=== PATIENT | female | born 1960 | race Caucasian/White ===

== ENCOUNTER 2020-12-21 11:16 | Outpatient (CLI) | payer OTHER, SELFPAY ==
--- NOTE | ~2020-12-21 | XR_ITS ---
EXAMINATION: XR shoulder LT min 2V DATE: 12/21/2020 13:18 INDICATION: Left shoulder pain TECHNIQUE: AP internally and externally rotated, AP oblique externally rotated and transscapular Y vi ews of the left shoulder were obtained. COMPARISON: None FINDINGS: Normal alignment. No fracture.Mild glenohumeral osteoarthritis with small marginal osteophytes along the inferior glenoid. Acromioclavicular osteoarthritis with small amount of heterotopic ulceration a long the cephalad joint capsule. Small lateral subacromial spur. Small bone island at the humeral hea d. Soft tissues are and visualized portions of the lungs unremarkable. IMPRESSION: Mild left glenohumeral and acromioclavicular osteoarthritis. Reviewed, dictated and finalized at location A.
--- NOTE | ~2020-12-21 | XR_ITS ---
XR shoulder RT min 2V DATE: 12/21/2020 12:01 INDICATION: Bilateral shoulder pain TECHNIQUE: 4 views COMPARISON: None FINDINGS: There is diffuse osteopenia. There is multilevel degenerative disc disease of the cervical spine, especially at C5-6 and C6-7. The re is degenerative spurring of the thoracic spine. There is mild degenerative spurring at the right acromioclavicular joint. No fracture, dislocation, periosteal reaction or bone destruction of the right shoulder. IMPRESSION: Mild degenerative spurring at the acromioclavicular joint Osteopenia Reviewed, dictated and finalized at location A.
--- NOTE | ~2020-12-21 | XR_ITS ---
XR cervical spine 4-5V DATE: 12/21/2020 11:58 INDICATION: Chronic neck pain TECHNIQUE: AP, open-mouth, lateral, swimmer views COMPARISON: None FINDINGS: There is straightening of the cervical spine which may be due to muscle spasm. C1 and C2 are normally aligned and the odontoid process is intact. No fracture or dislocation, locked facet or prevertebral soft tissue swelling is detected. There is minimal anterolisthesis at C4-5. There is moderate loss of interspace height at C5-6 and to a greater extent C6-7. There is uncovertebral joint spurring in the mid and lower cervical spine, most prominent at C6-7. IMPRESSION: Straightening Minimal anterolisthesis at C4-5 Mild degenerative disc disease at C5-6, moderate at C6-7 Degenerative change at the uncovertebral joints, particularly at C6-7 Reviewed, dictated and finalized at location A.
== END 2020-12-21 11:17 | disposition home or self-care (01) ==
PROVIDERS: PCP Physician Assistant; Visit Provider Physician Assistant
DX: M19.012 Primary osteoarthritis, left shoulder (principal); M50.323 Other cervical disc degeneration at C6-C7 level; M50.322 Other cervical disc degeneration at C5-C6 level; M19.011 Primary osteoarthritis, right shoulder; M85.811 Other specified disorders of bone density and structure, right shoulder
CPT/HCPCS: 72050; 73030

== ENCOUNTER 2021-10-25 13:32 | Outpatient (CLI) | payer OTHER, SELFPAY ==
--- NOTE | 2021-10-25 | ECHO_ITS ---
Patient Info Name: Angy Aiken Age: 61 years : 1960 Gender: Female Ht: 63 in Wt: 136 lbs BSA: 1.67 m2 HR: 103 bpm BP: 111 / 76 mmHg Heart Rhythm: Sinus Rhythm Exam Date: 10/25/2021 2:11 PM Exam Location: [facility] Pulmonary Patient Status: Outpatient Admit Date: 10/25/2021 Staff Ordering Physician: Joe, Kelley Higuera PA-C Mobile Lab Technician: Shree Blas RDCS, RT Attending Provider: Joe, Kelley Higuera PA-C Referring Physician: Joe QUIROZ; Exam Type: CA echo doppler color flow Study Info Indications I10 - Essential (primary) hypertension Complete two-dimensional, color flow and Doppler transthoracic echocardiogram is performed. Strain analysis performed. Summary 1. Complete two-dimensional, color flow and Doppler transthoracic echocardiogram is performed. 2. Normal left ventricular size and thickness with good contractility of all segments. Ejection fraction visually is 55-60%. Grade 1 diastolic dysfunction is present. 3. Global longitudinal strain is moderately abnormal at -13% consistent with a degree of systolic dysfunction. 4. No significant valve disease. 5. Normal sinus rhythm. 6. Technically difficult study. Left Ventricle Left ventricular chamber dimension is normal. Left ventricular systolic function is normal, estimated at 55-60%. There is no increased left ventricular wall thickness. Left ventricular septal wall motion is normal. The left ventricular diastolic function is grade I diastolic dysfunction. Right Ventricle Right ventricular chamber dimension is normal. Right ventricular systolic function is normal. Left Atria Left atrial chamber dimension is normal. Right Atria Right atrial chamber dimension is normal. Aortic Valve The aortic valve is trileaflet. There is no aortic valve sclerosis. There is no aortic valve stenosis. There is no aortic valve regurgitation. Pulmonic Valve The pulmonic valve is normal. There is no pulmonic valve stenosis. There is no pulmonic regurgitation. Mitral Valve The mitral valve has normal leaflets. There is no mitral valve stenosis. There is trace mitral valve regurgitation. Tricuspid Valve The tricuspid valve leaflets are normal. There is no significant tricuspid valve stenosis. There is trace tricuspid valve regurgitation. No pulmonary hypertension, estimated pulmonary arterial systolic pressure is Empty. Pericardium/Pleural The pericardium appears normal. There is no pericardial effusion. Inferior Vena Cava Normal inferior vena cava with >50% collapse upon inspiration consistent with Empty right atrial pressure, Empty. Aorta The aortic root size at the sinus of Valsalva is normal. The prox ascending aorta size is normal. Left Ventricular Outflow Tract Name Value Normal LVOT Doppler LVOT Peak Gradient 2 mmHg LVOT Mean Gradient 1 mmHg LVOT VTI 13 cm LVOT VTI/AV VTI Ratio 0.7 Mitral Valve Name Value Normal
--- NOTE | 2021-10-31 12:40 | WPDHOLTEREM ---
Holter/Event Monitor Holter/Event Monitor Date of procedure: 10/31/21 Holter/Event Procedure: 48 Hr Holter Monitor Indications: Syncope Conclusion: 1. 48 hour holter monitor on 10/25/21. 2. Underlying rhythm is sinus rhythm. HR range 55-154 bpm; average HR 84 bpm. 3. There are 6 premature supraventricular complexes and 1 supraventricular triplet. No supraventricular tachycardia. 4. There are 2 premature ventricular complexes. No ventricular tachycardia. 5. No sinoatrial or atrioventricular blocks. No significant pauses greater than 2 seconds. 6. Patient reports symptoms of heart beating hard and pain which demonstrate sinus tachycardia at 114 bpm.
== END 2021-10-25 13:33 | disposition home or self-care (01) ==
PROVIDERS: PCP Physician Assistant; Visit Provider Physician Assistant
DX: R42 Dizziness and giddiness (principal); I10 Essential (primary) hypertension; R55 Syncope and collapse; Z86.79 Personal history of other diseases of the circulatory system
CPT/HCPCS: 93225; 93226; 93306

== ENCOUNTER 2022-09-25 12:34 | Outpatient (CLI) | payer OTHER, SELFPAY ==
--- NOTE | ~2022-09-25 | US_ITS ---
EXAMINATION: US soft tissue lower back DATE: 09/25/2022 13:46 INDICATION: 2 months of a painful lump at the right posterior lower back TECHNIQUE: Multiple grayscale and Doppler ultrasound images of the region of concern at the posterior right abdominal wall were obtained. COMPARISON: None FINDINGS: Superficial slightly cephalad to the tip of the right 12th rib is an 11 x 7 x 5 mm ovoid hypoechoic s ubcutaneous nodule with is isoechoic and with similar echotexture as the surrounding subcutaneous fat . No abnormal internal vascular flow or surrounding hyperemia on color Doppler. No other abnormal mas ses or fluid collections identified. IMPRESSION: 1. Nonspecific 11 mm subcutaneous nodule with appearance most consistent with and statistically most likely to represent a lipoma. Reviewed, dictated and finalized at location A. IMPRESSION: 1. Nonspecific 11 mm subcutaneous nodule with appearance most consistent with a nd statistically most likely to represent a lipoma.
== END 2022-09-25 12:35 | disposition home or self-care (01) ==
PROVIDERS: PCP Physician Assistant Medical; Visit Provider Physician Assistant Medical
DX: R22.2 Localized swelling, mass and lump, trunk (principal)
CPT/HCPCS: 76705

== ENCOUNTER 2022-12-01 12:10 | Emergency (ER) | payer OTHER, SELFPAY ==
[2022-12-01 12:11] VITALS: BP 182/88; PULSE 73; RESP 18; TEMP 37.1; O2SAT 98
--- NOTE | 2022-12-01 13:18 | ED.BACK ---
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 Patient had similar symptoms a few days ago and had x-ray of the thoracic spine and lumbar spine without any significant abnormality. History of chronic degenerative joint disease along the spine, and the fibromyalgia. Currently on ibuprofen 800 mg, tizanidine and marijuana for pain. Pain is worse with any movement, or sitting, slightly better standing and not moving. She denies any fever, chills, nausea, vomiting, diarrhea, constipation, chest pain or shortness of breath Related Data Allergies Allergy/AdvReac Type Severity Reaction Status Date / Time latex Allergy Intermediate ITCHING, Verified 12/01/22 13:18 HIVES Review of Systems Review of Systems: All systems reviewed & are unremarkable except as noted in HPI and below PMFSH Past Medical History Medical History Adenoid hyperplasia Anxiety Arthritis told it was RA , had experimental treatment and went into remission. Bipolar depression Chronic neck pain Degenerated intervertebral disc Fibromyalgia Fracture, spinal ? L5 summer 2021? Hematuria chronic, cystoscopy 2017? 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 Facial numbness. Polyarthralgia Psoriasis Of the scalp. In remission. Thoracic back pain left sided spasms shoot up to neck and down left arm Vitamin D deficiency Surgical History Surgical History H/O laparoscopy History of breast surgery History of hysterectomy History of knee surgery History of removal of ovarian cyst Hx of appendectomy Family History Family History Father Cancer Hypertension Heart disease Sibling Cancer Diabetes mellitus Hypertension Grandparent Cancer Alcoholism Hypertension Depression Heart disease Social History Social History Smoking packs per day: 0.05 Smoking cigarettes per day: 1.0 Smoking status: Current every day smoker Tobacco type: cigarettes Alcohol intake: never Substance use: current Substance use type: marijuana Other substance usage details: smoke / ISO / pill Last use: Doctor RX Lack of Transportation: No Lack of Food: Never True Current Housing: I Have Housing Concerned About Future Housing: No Difficulty Paying Gas/Electric Bills: YES Difficulty Paying for Meds: YES Currently Unemployed: YES Difficulty w/ Childcare or Family Care: YES Living arrangements: with family Occupation/Education: occupation Gender identity (if verbalized by the patient): Female Exam Narrative: General appearance: Well-developed, well-nourished, patient is standing next to bed cannot sit Skin: Normal color Head: Normocephalic, nontraumatic Eyes: Clear conjunctiva ENT: Oropharynx normal, ears normal, nose normal Neck: Supple, nontender Chest and respiratory: Airway patent, no respiratory distress, no accessory muscle use Heart: Regular rate/rhythm Abdomen: Soft, nontender, no organomegaly, quiet bowel sounds Vascular: Normal peripheral pulses, normal capillary refill. Musculoskeletal: Diffuse tenderness all over the back with light palpation. Patient cannot tolerate a touch to her skin on the back, no bruises, no swelling or rash. Neurologic: Alert and oriented ?3, ACCOUNT FINANCIAL MANAGER is normal as tested, no gross motor deficit
[2022-12-01] MEDS: KETOROLAC (*BKC) 60 MG/2 ML VIAL IM (13:50)
[2022-12-01] MEDS: ONDANSETRON HCL ODT 4 MG TABLET PO (13:50)
--- NOTE | 2022-12-01 13:50 | PC.NURSE ---
PT STATES SHE IS DRIVING HOME. PAIN MED AND MUSCLE RELAXER HELD UNTIL ANALI VANN HAS CHANCE TO SPEAK WITH DR BAIN
[2022-12-01] MEDS: HYDROcodone/acetaminophen (*CRX) 5-325 MG TABLET 1 TAB PO (14:11)
[2022-12-01] MEDS: diazePAM (*CRX) 5 MG TABLET PO (14:11)
== END 2022-12-01 14:16 | disposition home or self-care (01) ==
PROVIDERS: Emergency Provider Emergency Medicine; PCP Physician Assistant Medical
DX: M79.7 Fibromyalgia (principal); M54.9 Dorsalgia, unspecified; G89.29 Other chronic pain; F17.210 Nicotine dependence, cigarettes, uncomplicated; F12.90 Cannabis use, unspecified, uncomplicated; E55.9 Vitamin D deficiency, unspecified; F41.9 Anxiety disorder, unspecified
CPT/HCPCS: 96372; 99283; A9270; J1885

== ENCOUNTER 2023-02-11 10:07 | Emergency (ER) | payer OTHER, SELFPAY ==
[2023-02-11] VITALS (14 sets, daily range): BP systolic 140–181; BP diastolic 74–105; PULSE 52–64; RESP 13–28; TEMP 37; O2SAT 96–98
--- NOTE | ~2023-02-11 | XR_ITS ---
[XR ribs RT 2V ] INDICATION: Right upper quadrant and chest pain TECHNIQUE: Frontal projection of the upper right ribs, frontal projection of the lower right ribs, ob lique projection of all the right ribs, frontal inspiratory chest x-ray for interpretation. FINDINGS: There are no displaced rib fractures identified. There are no soft tissue abnormality see n. The lungs are clear. IMPRESSION: 1:No acute displaced rib fractures. Reviewed, dictated and finalized at location L. UCT ENGINEER
--- NOTE | ~2023-02-11 | CT_ITS ---
CT of the Abdomen and Pelvis: Indication: Abdominal pain Technique: 2.5 mm axial scans were obtained through the abdomen and pelvis following intravenous adm inistration of 100 cc of Omnipaque 350. Dose reduction technique was used on this scan by utilizing a utomated exposure control and iterative reconstruction technique. The dose-length product (DLP) was 3 96.55 mGy-cm. Findings: Scans through the lung bases are unremarkable. The liver, spleen, pancreas, gallbladder, right adrenal and, and kidneys are within normal limits. Th ere is a 1.3 cm indeterminate left adrenal nodule (Hounsfield units of 70). There are atherosclerotic calcifications of the aorta. No lymphadenopathy. No bowel obstruction or bowel wall thickening. There is no evidence to suggest acute appendicitis. Images through the pelvis were performed. Urinary bladder unremarkable. No adnexal mass seen. No asci sol. Compression deformity versus Schmorl's node at the superior endplate of L1. Impression: No acute abnormality. 1.3 cm left adrenal nodule, statistically most likely adenoma, though indeterminate on this exam. 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 Chronic compression deformity versus Schmorl's node at the superior endplate of L1. Reviewed, dictated and finalized at location . 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 1.3 cm left adrenal nodule, statistically most likely adenoma, though indetermi adrian on this exam. Consider follow-up MR to attempt to further confirm adenoma. Chronic compression deformity versus Schmorl's node at the superior endplate of L1.
--- NOTE | 2023-02-11 10:17 | ECG_ITS ---
Measurements Intervals [place] Rate: 51 P: 7 KS: 145 QRS: -12 QRSD: 127 T: -11 QT: 437 QTc: 404 Interpretive Statements SINUS BRADYCARDIA INCOMPLETE RIGHT BUNDLE BRANCH BLOCK BORDERLINE ST-T WAVE ABNORMALITY- ANT/INF LEADS BORDERLINE ECG NO PREVIOUS ECG AVAILABLE FOR COMPARISON Electronically Signed On 02-11-2023 10:55:54 MANAGER PARKING by Rancho Smith D.O.
[2023-02-11 10:57] LABS: Basophils Absolute Auto 0.1 K/mm3 (0.0-0.1); Basophils Percent Auto 0.7 % (0.2-1.2); Eosinophils Absolute Auto 0.1 K/mm3 (0-0.3); Eosinophils Percent Auto 1.2 % (0-4.4); Hematocrit 39.3 % (37.0-47.0); Immature Granulocyte Absolute 0.06 K/mm3 (0.00-0.031); Immature Granulocyte Percent A 0.7 % (0-0.5); Lymphocytes Absolute Auto 3.29 K/mm3 (0.9-3.2); Lymphocytes Percent Auto 41.1 % (18.3-44.2); Mean Corpuscular HGB Conc 33.1 g/dl (32-36); Mean Corpuscular Hemoglobin 30.5 pg (26-34); Mean Corpuscular Volume 92.3 fl (80-100); Mean Platelet Volume 8.4 fl (7.4-10.4); Monocytes Absolute Auto 0.5 K/mm3 (0.1-0.6); Monocytes Percent Auto 6.2 % (2.6-8.5); Neutrophils Percent Auto 50.1 % (45.5-73.1); Platelet Count Result 320 k/mm3 (150-375); Red Blood Count 4.26 M/mm3 (4.2-5.4); Red Cell Distribution Width 13.7 % (11.5-14.5)
[2023-02-11 11:01] LABS: Appearance Urine Clear (Clear); Bacteria Urine None Seen /hpf; Bilirubin Urine Negative (Negative); Color Urine Yellow (Yellow); Glucose Urine UA Negative (Negative); Ketones Urine Negative (Negative); Leukocyte Esterase Ur Negative LEU/UL (Negative); Nitrate Urine Negative (Negative); Non Pathogenic Casts 0-2; Protein Urine Negative (Negative); RBC Urine 0-2 /hpf (0-2); Specific Grav Ur 1.005 (1.001-1.035); Squamous Epithelial Cell Urine None seen /hpf (Few); Urobilinogen Urine 0.2 mg/dL (<2.0); WBC Urine 0-5 /hpf
[2023-02-11 11:07] LABS: Add Urine Microscopic? YES
[2023-02-11 11:13] LABS: Alanine Aminotransferase 20 U/L (6-35); Albumin Level 4.6 g/dL (3.5-5.1); Alkaline Phosphatase 76 U/L (38-126); Anion Gap 7 mmol/L (8-16); Aspartate Amino Transferase 27 U/L (14-36); Bilirubin,Total 0.5 mg/dL (0.2-1.3); Blood Urea Nitrogen 17 mg/dL (7-17); Calcium 9.4 mg/dL (8.4-10.2); Carbon Dioxide 25 mmol/L (22-30); Chloride 105 mmol/L (98-107); Estimated CRCL calculation 68 ml/min; Estimated Glomerular Filt Rate > 60; Glucose 98 mg/dL (65-110); Lipase 122 U/L (23-300); Potassium 4.4 mmol/L (3.4-5.0); Sodium 137 mmol/L (137-145)
--- NOTE | 2023-02-11 13:19 | ED.GENADULT ---
HPI - General Adult General Chief complaint: Abdominal Pain Stated complaint: right lateral cp/htn Time Seen by Provider: 02/11/23 12:02 History of Present Illness HPI narrative: Angy Aiken is a 62 y/o female who presents with reports of having 1 week of right lower anterior chest wall / right upper quadrant pain. She describes the pain as spasming, she has not correlated the pain to be associated with eating / movement / states it comes on sometimes at rest/ sometimes with exertion/ sometimes at night when shes sleeping. She states she went to another hospital for the same and had CT of her chest/ labs and was d/c home. The spasm happened again last night she called her PCP and was encouraged to go to the ED. Denies cough/ fever/chills/ She states she has had nausea/vomiting for two years and has not correlated with her symptoms today - she explains that she has sever fibromyalgia and she has been suffering with sporadic pains for years and this is just another one. Related Data Home Medications Medication Instructions Recorded Confirmed Marijuana inhalation 12/06/22 02/05/23 Allergies Allergy/AdvReac Type Severity Reaction Status Date / Time latex Allergy Intermediate ITCHING, Verified 02/05/23 11:22 HIVES cyanocobalamin (vitamin B12) Allergy Unknown Nausea Verified 02/11/23 13:49 gabapentin AdvReac Sedation Verified 02/05/23 12:59 Review of Systems Review of Systems: CONSTITUTIONAL: Denies fever, chills, or sweats. EYES: Denies visual changes, redness, or discharge. ENT: Denies rhinorrhea, congestion, sore throat, or otalgia. CARDIOVASCULAR: Denies chest pain, palpitations, or edema. RESPIRATORY: Denies cough or dyspnea. GASTROINTESTINAL: Denies abdominal pain some right upper abdomen,reports nausea for 2 years denies any recent vomiting, or diarrhea. GENITOURINARY: Denies dysuria or hematuria. SKIN: Denies rash or itching. MUSCULOSKELETAL: Denies back pain, joint pain, or myalgia. NEUROLOGIC: Denies headache, numbness, dizziness, or weakness. PSYCHIATRIC: Denies anxiety or depression. REPLACED BY [facility] Past Medical History Medical History Adenoid hyperplasia Stable on CT 12/09/2022. ENT consult recommended Anxiety Arthritis told it was RA , had experimental treatment and went into remission. Bipolar depression Chronic neck pain Compression fracture of L1 lumbar vertebra Chronic, increased from 10% to 30% from September 2021 to November 2022 Degenerated intervertebral disc Fibromyalgia Fracture, spinal Compression fracture L1 summer 2021 Hematuria chronic, cystoscopy 2018? 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 Facial numbness. Peptic ulcer disease Hospitalized for in her teens Peripheral artery disease Advanced plaquing of the common iliac arteries bilaterally on CT lumbar spine from September 2021. Polyarthralgia Psoriasis Of the scalp. In remission. Rash (~07/2022) itchy blisters on her fingers. Thoracic back pain left sided spasms shoot up to neck and down left arm Vitamin D deficiency Surgical History Surgical History H/O laparoscopy History of breast surgery History of hysterectomy History of knee surgery History of removal of ovarian cyst Hx of appendectomy Family History Family History Father Cancer Hypertension Heart disease Sibling Cancer Diabetes mellitus Hypertension Grandparent Cancer Alcoholism Hypertension Depression Heart disease Social History Social History Smoking packs per day: 0.05 Smoking cigarettes per day: 1.0 Smoking status: Current every day smoker Tobacco type: cigarettes Alcohol intake: never Substance use: current Substance use type: anna
[2023-02-11] MEDS: ORPHENADRINE CITRATE 100 MG TABLET.ER PO (13:52)
[2023-02-11] MEDS: KETOROLAC 30 MG/ML VIAL (*BKC) IV PUSH (13:53)
[2023-02-11] MEDS: LIDOCAINE 5% PATCH 1 PATCH TRANSDERM (15:19)
== END 2023-02-11 15:42 | disposition home or self-care (01) ==
PROVIDERS: Emergency Medicine; Emergency Provider Nurse Practitioner Family; PCP Physician Assistant Medical
DX: R25.2 Cramp and spasm (principal); E27.8 Other specified disorders of adrenal gland; F17.210 Nicotine dependence, cigarettes, uncomplicated; F41.9 Anxiety disorder, unspecified; M19.90 Unspecified osteoarthritis, unspecified site; F32.A Depression, unspecified
CPT/HCPCS: 36415; 71100; 74177; 80053; 81001; 83690; 85025; 93005; 96374; 99284; A9270; J1885; Q9967

== ENCOUNTER 2023-03-04 15:21 | Outpatient (CLI) | payer OTHER, SELFPAY ==
--- NOTE | ~2023-03-04 | DEXA_ITS ---
Bone Density Report Name: MAZIN ADHIKARI Age: 62 Sex: Female Ethnicity: White Date of : 1960 Indication: postmenopausal; screening for osteoporosis; height loss; prior fracture; hysterectomy; Referring Provider: SABIHA HERNANDEZ I. Study: Bone densitometry was performed. Exam Date: March 04, 2023 Accession number: [id number] Bone Density: Region BMD T-score Z-score Classification AP Spine(L1-L4) 0.788 -2.4 -0.8 Osteopenia Femoral Neck (Left) 0.615 -2.1 -0.7 Osteopenia Total Hip (Left) 0.789 -1.3 -0.2 Osteopenia Femoral Neck (Right) 0.615 -2.1 -0.7 Osteopenia Total Hip (Right) 0.746 -1.6 -0.5 Osteopenia Total Hip Mean 0.767 -1.5 -0.4 Osteopenia World Health Organization criteria for BMD impression classify patients as: Normal (T-score at or above -1.0), Osteopenia (T-score between -1.0 and -2.5), or Osteoporosis (T-score at or below -2.5). 10-year Fracture Risk: FRAX not reported because: Prior hip or vertebral fracture Clinical Information Provided by Patient: Have had a previous hip or vertebral fracture Has had a low trauma fracture Smokes Has the following medical conditions: Hysterectomy Patient maximum height was 64 Menopause Age: 24 No regular weight bearing exercise Drinks caffeinated beverages Onset of menses at age 10 Number of children 2 Impression: The patient has low bone mass, based on the Total Spine T-score. The patient has risk factors, including: smoking, previous fracture. Discussion: INCREASED RISK OF FRACTURE DUE TO HISTORY OF FRACTURE. The patient's previous fracture puts the patient at high risk of a future fracture. In untreated patients, the risk of osteoporotic fracture increases approximately two-fold for each 1.0 SD decrease in T-score. Low bone density is not the only risk factor for fracture; also consider factors such as patient's age, frailty or poor health, risk of falling, risk of injury, previous osteoporotic fracture, family history of osteoporosis, cigarette smoking, low body weight, etc. Not everyone with a low trauma fracture has osteoporosis; osteomalacia and other metabolic bone disorders should also be considered. Patients who have osteoporosis should be evaluated for specific diseases and conditions (secondary causes) that may cause or contribute to bone loss and fracture risk. National Osteoporosis Foundation (NOF) recommends pharmacologic intervention for patients with a prior hip or vertebral fracture regardless of BMD T-score. The patient should follow a healthful lifestyle (good nutrition with adequate calcium and vitamin D, and appropriate weight-bearing exercise). Follow-Up: Consider a repeat BMD and Vertebral Fracture Assessment (VFA) exam in 2 years or sooner if medically necessary, to reassess this patient's status. Reported by:
== END 2023-03-04 15:22 | disposition home or self-care (01) ==
PROVIDERS: PCP Physician Assistant Medical; Visit Provider Physician Assistant Medical
DX: E28.39 Other primary ovarian failure (principal); M25.50 Pain in unspecified joint; M85.88 Other specified disorders of bone density and structure, other site; M85.852 Other specified disorders of bone density and structure, left thigh; M85.851 Other specified disorders of bone density and structure, right thigh
CPT/HCPCS: 77080

== ENCOUNTER 2023-05-08 12:41 | Outpatient (CLI) | payer OTHER, SELFPAY ==
--- NOTE | ~2023-05-08 | CT_ITS ---
EXAMINATION: CTA abd aorta runoff DATE: 05/08/2023 13:38 INDICATION: Claudication, peripheral arterial disease TECHNIQUE: Computed tomographic angiography (CTA) of the abdomen, pelvis, and both lower extremities was performed with 150 mL Omnipaque-350 intravenous contrast. The dose-length product (DLP) was 1069. 28 mGy-cm. Maximum intensity projection 3D-reconstructions of the arteries were created by the techno logist on a separate workstation. Automated exposure control and iterative reconstruction technique w ere employed. COMPARISON: 02/11/2023 FINDINGS: ABDOMINAL AORTA AND ITS BRANCHES: No aneurysm or dissection. There is calcified atherosclerosis of the distal abdominal aorta without h emodynamically significant stenosis. The celiac axis, superior mesenteric artery, and inferior mesent merly artery are normal at their origins. There are single renal arteries. PELVIC VASCULATURE: There is calcified atherosclerosis without hemodynamically significant stenosis of the common iliac a rteries. There is moderate stenosis at the origin of the left external iliac artery. There is calcifi ed atherosclerosis without hemodynamically significant stenosis in the bilateral internal iliac arter ies. The right common iliac artery is unremarkable. RIGHT LOWER EXTREMITY VASCULATURE: There is calcified atherosclerosis of the common femoral and superficial femoral arteries without hem odynamically significant stenosis. The popliteal artery, tibial peroneal trunk, anterior and posterio r tibial arteries, and peroneal artery are unremarkable. There is a three-vessel runoff at the ankle. LEFT LOWER EXTREMITY VASCULATURE: There is calcified atherosclerosis of the distal common femoral artery. There is calcified atheroscle rosis with mild stenosis in the proximal superficial femoral artery. There is calcified atheroscleros is with mild stenosis of the popliteal artery. The tibioperoneal trunk, anterior and posterior tibial arteries, and peroneal artery are normal. There is a three-vessel runoff at the ankle. ADDITIONAL FINDINGS: There is mild dependent atelectasis of the visualized lung bases. Bilateral breast implants are noted . There is a stable 11 mm area of hyperenhancement of the liver adjacent to the gallbladder fossa, li william transient hepatic attenuation difference. The spleen, pancreas, and gallbladder are normal. Smal l masses of the adrenal glands, measuring up to 1.3 cm on the left, likely reflect adenomas. The kidn eys are unremarkable. No pathologically enlarged abdominal or pelvic lymph nodes are identified. No f ree intraperitoneal gas or evidence of bowel obstruction. IMPRESSION: 1. Vascular disease as detailed above. Reviewed, dictated and finalized at location L. 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
[2023-05-08 13:23] LABS: Estimated Glomerular Filt Rate > 60
== END 2023-05-08 12:42 | disposition home or self-care (01) ==
LOC: ANHIMG 12:44
PROVIDERS: PCP Physician Assistant Medical; Visit Provider Physician Assistant Medical
DX: I73.9 Peripheral vascular disease, unspecified (principal)
CPT/HCPCS: 75635; Q9967

== ENCOUNTER 2023-09-29 12:16 | Outpatient (CLI) | payer OTHER, SELFPAY ==
--- NOTE | ~2023-09-29 | CT_ITS ---
CT of the Abdomen and Pelvis: Indication: Abdominal pain Technique: 2.5 mm axial scans were obtained through the abdomen and pelvis following intravenous adm inistration of 100 cc of Omnipaque 350. Dose reduction technique was used on this scan by utilizing a utomated exposure control and iterative reconstruction technique. The dose-length product (DLP) was 5 68.66 mGy-cm. COMPARISON: 05/08/2023 Findings: Scans through the lung bases are unremarkable. The liver, spleen, pancreas, gallbladder, adrenals and kidneys are within normal limits. There are at herosclerotic calcifications of the aorta. No lymphadenopathy. No bowel obstruction or bowel wall thickening. There is no evidence to suggest acute appendicitis. Images through the pelvis were performed. Urinary bladder unremarkable. Patient is post cystectomy. N o pelvic mass seen. No ascites. Impression: No acute abnormality seen. Reviewed, dictated and finalized at [facility]. Impression: No acute abnormality seen.
[2023-09-29 12:45] LABS: Estimated Glomerular Filt Rate > 60
[2023-09-29 12:53] LABS: Hematocrit 39.7 % (37.0-47.0); Mean Corpuscular HGB Conc 32.7 g/dl (32-36); Mean Corpuscular Volume 88.4 fl (80-100); Mean Platelet Volume 8.6 fl (7.4-10.4); Platelet Count Result 388 k/mm3 (150-375); Red Blood Count 4.49 M/mm3 (4.2-5.4); Red Cell Distribution Width 12.8 % (11.5-14.5)
[2023-09-29 13:04] LABS: Alanine Aminotransferase 19 U/L (6-35); Albumin Level 4.7 g/dL (3.5-5.1); Alkaline Phosphatase 94 U/L (38-126); Amylase 90 U/L (30-110); Anion Gap 9 mmol/L (4-12); Aspartate Amino Transferase 25 U/L (14-36); Bilirubin,Total 0.3 mg/dL (0.2-1.3); Blood Urea Nitrogen 16 mg/dL (7-17); Calcium 9.6 mg/dL (8.4-10.2); Carbon Dioxide 28 mmol/L (22-30); Chloride 101 mmol/L (98-107); Estimated Glomerular Filt Rate > 60; Glucose 93 mg/dL (65-110); Lipase 228 U/L (23-300); Potassium 4.8 mmol/L (3.4-5.0); Sodium 138 mmol/L (137-145)
== END 2023-09-29 12:17 | disposition home or self-care (01) ==
LOC: ANHIMG 12:17
PROVIDERS: PCP Physician Assistant Medical; Visit Provider Nurse Practitioner
DX: R10.84 Generalized abdominal pain (principal)
CPT/HCPCS: 36415; 74177; 80053; 82150; 83690; 85027; Q9967

== ENCOUNTER 2023-10-23 02:21 | Day surgery (SDC) | payer OTHER, SELFPAY ==
[2023-10-07 12:26] VITALS: BMI 28.7
[2023-10-23 10:13] VITALS: BP 156/81; PULSE 74; RESP 18; TEMP 36; O2SAT 97; BMI 28.6
[2023-10-23] MEDS: LACTATED RINGERS 1,000 ML 150 ML IV CONT (10:22)
--- NOTE | 2023-10-23 10:31 | PM.HPGS ---
History of Present Illness History of Present Illness Consent: Risks, benefits, and alternatives have been discussed and questions answered. Patient agrees to proceed with procedure. Chief complaint: N & V, Melena, Dysphagia, Personal hx. Colon polyp Narrative: Angy Aiken is a 63 year old female with n/v for 3 years, colon polyp about 5 years ago Review of Systems Review of Systems: All systems reviewed & are unremarkable except as noted in HPI and below PMFSH Past Medical History Medical History (Updated 10/12/23 @ 21:56 by Xochilt Rea PA-C) Adenoid hyperplasia Stable on CT 12/09/2022. ENT consult recommended Anxiety Arthritis told it was RA , had experimental treatment and went into remission. Bipolar depression Chronic neck pain Compression fracture of L1 lumbar vertebra Chronic, increased from 10% to 30% from September 2021 to November 2022 Degenerated intervertebral disc Fibromyalgia Fracture, spinal Compression fracture L1 summer 2021 Hematuria chronic, cystoscopy 2018? 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 Facial numbness. 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 Polyarthralgia Psoriasis Of the scalp. In remission. Rash (~07/2022) itchy blisters on her fingers. Thoracic back pain left sided spasms shoot up to neck and down left arm Vitamin D deficiency Surgical History Surgical History H/O laparoscopy History of breast surgery History of hysterectomy History of knee surgery History of removal of ovarian cyst Hx of appendectomy Family History Family History Father Cancer Hypertension Heart disease Sibling Cancer Diabetes mellitus Hypertension Grandparent Cancer Alcoholism Hypertension Depression Heart disease Social History Social History Smoking packs per day: 0.75 Smoking cigarettes per day: 15.0 Years smoked: 43 Smoking pack-years: 32.25 Smoking status: Current every day smoker Tobacco type: cigarettes Alcohol intake: current Substance use: current Substance use type: marijuana Other substance usage details: PRESCRIPTION Last use: Doctor RX Lack of Transportation: No Lack of Food: Never True Current Housing: I Have Housing Concerned About Future Housing: No Difficulty Paying Gas/Electric Bills: YES Difficulty Paying for Meds: YES Currently Unemployed: YES Difficulty w/ Childcare or Family Care: YES Living arrangements: with family Occupation/Education: occupation Gender identity (if verbalized by the patient): Female Spiritual care concerns: No Meds Home Medications and Allergies Home Medications Medication Instructions Recorded Confirmed Type ergocalciferol (vitamin D2) 1,250 1,250 mcg PO WEEKLY #12 caps 04/24/23 10/07/23 Rx mcg (50,000 unit) capsule valsartan 80 mg tablet 80 mg PO DAILY #90 tabs 08/04/23 10/07/23 Rx ibuprofen 800 mg tablet 800 mg PO TID pain #42 tabs 09/01/23 10/07/23 Rx omeprazole 40 mg capsule,delayed 40 mg PO BID #90 caps 09/10/23 10/07/23 Rx release peg-electrolyte solution 420 gram 240 ml PO Q10M #4,000 mL 09/15/23 10/07/23 Rx oral solution (GaviLyte-N) pregabalin 75 mg capsule 75 mg PO BID #60 caps 09/16/23 10/07/23 Rx Marijuana 2 puff inhalation USEASDIRECTD PRN 10/07/23 10/07/23 History Pain ondansetron HCl 4 mg tablet 4 mg PO Q6H PRN Nausea #4 tabs 10/07/23 Rx tizanidine 4 mg tablet 6 mg PO TID muscle spasticity 10/07/23 10/07/23 History hydroxyzine HCl 25 mg tablet 50 mg PO TID anxiety #180 tabs 10/17/23 Rx Allergies Allergy/Ad
--- NOTE | 2023-10-23 10:32 | WPDANESEPPF ---
Anes - Initial Pre Proc Eval Procedure: Operation Date: 10/23/23 15:00 Proposed Procedures p Esophagogastroduodenoscopy & Colonoscopy - Dudley Phoneix MD Date/Time: 10/23/23 10:32 Surgeon: Dudley Phoenix MD Pre Op Diagnosis: N & V, Melena, Dysphagia, Personal hx. Colon polyp Patient Data Age: 63 Gender: F Height: 1.57 m Weight: 71 kg Last Vital Signs Temp 96.8 F L 10/23/23 10:13 Pulse 74 10/23/23 10:13 Resp 18 10/23/23 10:13 BP 156/81 H 10/23/23 10:13 Pulse Ox 97 10/23/23 10:13 O2 Del Method Room Air 10/23/23 10:13 Allergies Allergy/AdvReac Type Severity Reaction Status Date / Time alprazolam [From Xanax] Allergy Severe suicidal, Verified 10/23/23 10:11 amnesia amitriptyline Allergy Severe Nausea and Verified 10/23/23 10:11 Vomiting latex Allergy Severe ITCHING, Verified 10/23/23 10:11 HIVES cyanocobalamin (vitamin B12) Allergy Intermediate Nausea Verified 10/23/23 10:11 gabapentin Allergy Intermediate Dizziness Verified 10/23/23 10:11 [id number] Reductase AdvReac Severe Cramping Verified 10/23/23 10:11 Inhibitor of the Muscles Home Medications Medication Instructions Recorded Confirmed Type ergocalciferol (vitamin D2) 1,250 1,250 mcg PO WEEKLY #12 caps 04/24/23 10/07/23 Rx mcg (50,000 unit) capsule valsartan 80 mg tablet 80 mg PO DAILY #90 tabs 08/04/23 10/07/23 Rx ibuprofen 800 mg tablet 800 mg PO TID pain #42 tabs 09/01/23 10/07/23 Rx omeprazole 40 mg capsule,delayed 40 mg PO BID #90 caps 09/10/23 10/07/23 Rx release peg-electrolyte solution 420 gram 240 ml PO Q10M #4,000 mL 09/15/23 10/07/23 Rx oral solution (GaviLyte-N) pregabalin 75 mg capsule 75 mg PO BID #60 caps 09/16/23 10/07/23 Rx Marijuana 2 puff inhalation USEASDIRECTD PRN 10/07/23 10/07/23 History Pain ondansetron HCl 4 mg tablet 4 mg PO Q6H PRN Nausea #4 tabs 10/07/23 Rx tizanidine 4 mg tablet 6 mg PO TID muscle spasticity 10/07/23 10/07/23 History hydroxyzine HCl 25 mg tablet 50 mg PO TID anxiety #180 tabs 10/17/23 Rx Patient hx anesthesia problems: none Family hx anesthesia problems: none Results Review: All pre-operative results and documents have been reviewed as part of the pre-operative evaluation. [facility] Past Medical History Medical History (Updated 10/12/23 @ 21:56 by Xochilt Rea PA-C) Adenoid hyperplasia Stable on CT 12/09/2022. ENT consult recommended Anxiety Arthritis told it was RA , had experimental treatment and went into remission. Bipolar depression Chronic neck pain Compression fracture of L1 lumbar vertebra Chronic, increased from 10% to 30% from September 2021 to November 2022 Degenerated intervertebral disc Fibromyalgia Fracture, spinal Compression fracture L1 summer 2021 Hematuria chronic, cystoscopy 2018? 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 Facial numbness. 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 Polyarthralgia Psoriasis Of the scalp. In remission. Rash (~07/2022) itchy blisters on her fingers. Thoracic back pain left sided spasms shoot up to neck and down left arm Vitamin D deficiency Surgical History Surgical History H/O laparoscopy History of breast surgery History of hysterectomy History of knee surgery History of removal of ovarian cyst Hx of appendectomy Family History Family History Father Cancer Hypertension Heart disease Sibling Cancer Diabetes mellitus Hypertension Grandparent Cancer Alcoholism Hypertension Depression Heart disease Social History Social History (Reviewed
--- NOTE | 2023-10-23 10:46 | SUR.OPER ---
EGD end 1040, Colonoscopy start 1045
[2023-10-23 10:57] VITALS: BP 155/75; PULSE 66; RESP 23; O2SAT 100
[2023-10-23 11:07] VITALS: BP 160/73; PULSE 64; RESP 22; O2SAT 100
[2023-10-23 11:17] VITALS: BP 160/76; PULSE 64; RESP 21; O2SAT 97
== END 2023-10-23 11:27 | disposition home or self-care (01) ==
PROVIDERS: PCP Physician Assistant Medical; Referring Provider Nurse Practitioner; Visit Provider Internal Medicine Gastroenterology
PROC: 0DJ08ZZ Inspection of Upper Intestinal Tract, Via Natural or Artificial Opening Endoscopic (ICD-10-PCS; CPT 43235; principal; 2023-10-23 15:00)
DX: K21.00 Gastro-esophageal reflux disease with esophagitis, without bleeding (principal); K29.50 Unspecified chronic gastritis without bleeding; K64.8 Other hemorrhoids; I10 Essential (primary) hypertension; E55.9 Vitamin D deficiency, unspecified; F41.9 Anxiety disorder, unspecified; F32.A Depression, unspecified; G89.29 Other chronic pain; M54.2 Cervicalgia; I73.9 Peripheral vascular disease, unspecified; F17.210 Nicotine dependence, cigarettes, uncomplicated; F12.90 Cannabis use, unspecified, uncomplicated; Z79.1 Long term (current) use of non-steroidal anti-inflammatories (NSAID); Z98.890 Other specified postprocedural states; Z86.010 Personal history of colon polyps; Z80.9 Family history of malignant neoplasm, unspecified; Z82.49 Family history of ischemic heart disease and other diseases of the circulatory system
CPT/HCPCS: 43239; 45378; 88305; J2704; J7120

== ENCOUNTER 2023-11-12 12:54 | Outpatient (RCR) | payer OTHER, SELFPAY ==
--- NOTE | 2023-11-14 14:03 | PTOPEVAL1 ---
Assessment and note entered by Gabbie Quan, PT Evaluation Information Assessment Status Evaluation Diagnosis M79.7, M25.50, M54.2, M47.812, M54.9, M47.817 ICD-10 Condition Codes (PT) Cervicalgia M54.2,M54.6,Pain in low back M54.50, M54.13,M54.15,M54.16,M25.511,M25.512,M25.521,M25. 522,Pain in right hip M25.551,Pain in left hip M25 .552,R26.9,Weakness R53.1 Onset approx 3 years ago Subjective Information Pt reports generalized pain throughout her spine and all extremities. There are worst days and tolerable days, when pain is worst, even putting clothes on is excruciating and her skin feels like it is burning. Unable to raise arms forward due to increased pain. States that her R hip is painful when she is lying on the side on the bed, pain is aggravated by walking longer distances, prolonged sitting and standing, B thighs feel numb at times. Reports that she received a Cortisone shot to R hip a few months ago. 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 She presents to therapy with generalized pain and weakness, inability to raise BUE >90deg, postural deficits with noted pelvic malalignment, difficulty with transfers and ambulation due to pain. She has discussed with her provider regarding options for therapy for managing pain and improving safety with functional mobility. Patient will greatly benefit from Aquatic Rehab Program to manage the pain and address deficits, improve QOL and may transition to land-based activities as tolerated. Plan of Care Interventions Aquatic Therapy PT Services Indicated Yes Treatment Frequency and 2x/wk x 12 weeks Duration These treatments will address the objective and functional deficits as defined above. The patient will be advanced safely and appropriately in order for the patient to progress towards his/her prior level of function. Additional exercises will be introduced and as well as
--- NOTE | 2023-11-28 09:21 | PCPTNOTE ---
Pt cancelled appt today stating she just cant make it today.
--- NOTE | 2023-12-10 09:46 | PCPTNOTE ---
Pt NS visit today, and has no more scheduled. Pt was advised that she would DC unless she wanted assistance with therapy.
--- NOTE | 2023-12-18 11:09 | PTOPPROG ---
Assessment and note entered by Stacey Rosen, PT Evaluation Information Assessment Status Progress - Pt Not Present Diagnosis M79.7, M25.50, M54.2, M47.812, M54.9, M47.817 ICD-10 Condition Codes (PT) Cervicalgia M54.2,M54.6,Pain in low back M54.50, M54.13,M54.15,M54.16,M25.511,M25.512,M25.521,M25. 522,Pain in right hip M25.551,Pain in left hip M25 .552,R26.9,Weakness R53.1 Onset approx 3 years ago Subjective Information Pt reports generalized pain throughout her spine and all extremities. There are worst days and tolerable days, when pain is worst, even putting clothes on is excruciating and her skin feels like it is burning. Unable to raise arms forward due to increased pain. States that her R hip is painful when she is lying on the side on the bed, pain is aggravated by walking longer distances, prolonged sitting and standing, B thighs feel numb at times. Reports that she received a Cortisone shot to R hip a few months ago. Assessment PT Clinical Summary Pt attended her evaluation on 11/12/23. She then cancelled her 11/28/23 and [id number] her aquatic appointments. When asked to reschedule or schedule additional appointments she declined stating IBS as her reasoning. She has not returned to therapy since this point. Thus she has not participated in her therapy plan of care. If she should be unable to participate in aquatic therapy, we would be more than happy to assist her in a modified land-based therapy program. Thus we will continued therapy pending her and referring provider's decision in her upcoming appointment. Plan of Care Interventions Aquatic Therapy PT Services Indicated Yes Treatment Frequency and 2x/wk x 12 weeks Duration These treatments will address the objective and functional deficits as defined above. The patient will be advanced safely and appropriately in order for the patient to progress towards his/her prior level of function. Additional exercises will be introduced and as well as a comprehensive home exercise program upon discharge, if needed, ?to ensure carryover of functional gains achieved in the clinic. This treatment plan has been reviewed and agreement upon by the patient.
== END 2024-01-01 10:07 | disposition home or self-care (01) ==
LOC: ANHHIPT 12:54
PROVIDERS: PCP Physician Assistant Medical; Visit Provider Anesthesiology Pain Medicine
DX: M47.812 Spondylosis without myelopathy or radiculopathy, cervical region (principal); M54.2 Cervicalgia; M47.817 Spondylosis without myelopathy or radiculopathy, lumbosacral region; M54.6 Pain in thoracic spine; M79.7 Fibromyalgia; M54.9 Dorsalgia, unspecified; M15.9 Polyosteoarthritis, unspecified; M25.50 Pain in unspecified joint
CPT/HCPCS: 97161; 97530

== ENCOUNTER 2023-12-03 07:17 | Outpatient (CLI) | payer OTHER, SELFPAY ==
--- NOTE | ~2023-12-03 | CT_ITS ---
EXAMINATION: CT soft tissue neck chest w DATE: 12/03/2023 08:02 INDICATION: Suprasternal lump. TECHNIQUE: Computed tomography (CT) of the neck and chest was performed with 75 mL Omnipaque 350 intr avenous contrast. Automated exposure control and iterative reconstruction technique were employed. Th e dose-length product was 848.13 mGy-cm. COMPARISON: CT abdomen and pelvis 09/29/2023, 02/11/2023 FINDINGS: CT NECK: There is a mucous retention cyst in left maxillary sinus. There are no pathologically enlarg ed lymph nodes. There is plaque in the proximal internal carotid arteries with less than 50% stenosis relative to normal distal artery lumen diameters. There is moderate cervical spondylosis. CT CHEST: The lungs demonstrate mild atelectasis. No pleural effusion. The heart size is normal. Ther e are coronary artery calcifications. No pericardial effusion. Bilateral breast implants are noted. T here is a 12 mm hyperenhancing mass in right hepatic lobe in the gallbladder fossa without change fro m 02/11/2023, likely a hemangioma, focal nodular hyperplasia, or transient hepatic attenuation differ ence. There is a 13 mm mass in left adrenal gland measuring soft tissue attenuation without change fr om 02/11/2023, likely an adenoma. There are chronic compression fractures of T12 and L1. There is sev ere mid thoracic spondylosis. IMPRESSION: 1. No abnormal mass in the patient's area of concern in the suprasternal region. Reviewed, dictated and finalized at location A. IMPRESSION: 1. No abnormal mass in the patient's area of concern in the suprasternal region .
[2023-12-03 07:51] LABS: Estimated Glomerular Filt Rate > 60
== END 2023-12-03 07:18 | disposition home or self-care (01) ==
LOC: ANHIMG 07:20
PROVIDERS: PCP Physician Assistant Medical; Visit Provider Nurse Practitioner
DX: K21.00 Gastro-esophageal reflux disease with esophagitis, without bleeding (principal); R11.0 Nausea
CPT/HCPCS: 70491; 71260; Q9967